=== PATIENT | male | born 1995 | race African-American/Black ===

== ENCOUNTER 2021-08-30 12:11 | Emergency (ER) | payer OTHER, SELFPAY ==
[2021-08-30 12:29] VITALS: BP 149/91; PULSE 79; RESP 18; TEMP 36.8; O2SAT 99; BMI 28.0
--- NOTE | 2021-08-30 12:39 | ED_ITS ---
HPI - Extremity Injury (Upper) <Brian Nicole PA-C - Last Filed: 08/30/21 19:55> General Chief Complaint: Extremity Injury, Upper Stated Complaint: Laceration to Rt Hand Time Seen by Provider: 08/30/21 12:15 Mode of arrival: Ambulatory History of Present Illness HPI narrative: Patient is a 26-year-old male presenting to the emergency department today for an evaluation of a right hand laceration. Patient states that he was working wh en he sustained a laceration, noting that he cut his hand on a sharp piece of metal. He states that the injury occurred approximately 1 hour ago and states that his pain and bleeding under control at this time. Of note, patient denies injury or pain elsewhere. No fever, chills, chest pain, cough, shortness of breath, nausea, vomiting, diarrhea, abdominal pain, dysuria, hematuria, numbness and tingling the upper extremities, or any other concerning symptoms reported. No further concerns were voiced at this time. Patient states that it has been longer than 5 years since his most recent tetanus shot. Related Data Allergies Allergy/AdvReac Type Severity Reaction Status Date / Time No Known Drug Allergies Allergy Verified 08/30/21 12:39 Review of Systems <Brian Nicole PA-C - Last Filed: 08/30/21 19:55> Constitutional Constitutional: Denies chills, Denies fatigue, Denies fever(s), Denies frequent falls, Denies lethargy and Denies weakness Eyes Eyes: Denies loss of vision ENT Ears, Nose, Mouth, and Throat: Denies dizziness and Denies neck pain Cardiovascular Cardiovascular: Denies chest pain, Denies irregular heart rhythm, Denies lightheadedness, Denies palpitations, Denies dyspnea, Denies dyspnea on exertion and Denies orthopnea Respiratory Respiratory: Denies cough, Denies dyspnea, Denies dyspnea on exertion and Denies wheezing Gastrointestinal Gastrointestinal: Denies abdominal pain, Denies change in bowel habits, Denies diarrhea, Denies nausea and Denies vomiting Genitourinary Genitourinary: Denies hematuria, Denies flank pain, Denies urinary incontinence and Denies urinary urgency Musculoskeletal Musculoskeletal: Denies back pain, Denies muscle weakness, Denies neck pain, Denies numbness and Denies tingling Integumentary/Breasts Skin/Breast: Denies pruritus, Denies erythema, Denies rash and Reports wounds (Laceration right hand) Neurologic Neurologic: Denies behavioral changes, Denies confusion, Denies dizziness, Denies frequent falls, Denies loss of vision, Denies numbness, Denies tingling and Denies weakness Psychiatric Psychiatric: Denies behavioral changes and Denies confusion Endocrine Endocrine: Denies fatigue and Denies palpitations Allergic/Immunologic Allergic/Immunologic: Denies wheezing Patient History <Brian Nicole PA-C - Last Filed: 08/30/21 19:55> Social History Smoking Status: Never smoker Smoking Status: Never smoker Substance Use Type: does not use Exam <Brian Nicole PA-C - Last Filed: 08/30/21 19:55> Narrative Exam Narrative: GENERAL: 26 year old patient appears stated age. Well-developed patient, in no acute distress. HEAD: Atraumatic. Normocephalic. EYES: Pupils equal round and reactive. Extraocular motions intact. No scleral icterus. No injection or drainage. ENT: Nose without bleeding, purulent drainage. Throat without erythema, tonsillar hypertrophy or exudate. Airway patent. NECK: Trachea midline. Non tender CARDIOVASCULAR: Regular rate and rhythm without murmurs, gallops, or rubs. RESPIRATORY: Clear to auscultation. Breath sounds equal bilaterally. No wheezes, rales, or rhonchi. GASTROINTESTINAL: Abdomen soft, non-tender, nondistended. EXTREMITIES: No edema or joint tenderness. BACK: Nontender without deformity or crepitance. No flank tenderness. NEURO: AOx3. SKIN: No rash or erythema of visible areas. Approximately 2 cm linear laceration noted to the palmar aspect of the right hand without significant surrounding erythema or swelling. No retained foreign body noted in the laceration. No discharge noted throughout the laceration. Initial Vital Signs Initial Vital Signs: Vital Signs Temperature 98.2 F 08/30/21 12:29 Pulse Rate 79 08/30/21 12:29 Respiratory Rate 18 08/30/21 12:29 Blood Pressure 149/91 H 08/30/21 12:29 Pulse Oximetry 99 08/30/21 12:29 <Lexa Thomas DO - Last Filed: 08/31/21 22:30> Initial Vital Signs Initial Vital Signs: Vital Signs Temperature 98.2 F 08/30/21 12:29 Pulse Rate 79 08/30/21 12:29 Respiratory Rate 18 08/30/21 12:29 Blood Pressure 149/91 H 08/30/21 12:29 Pulse Oximetry 99 08/30/21 12:29 Procedures <Brian Nicole PA-C - Last Filed: 08/30/21 19:55> Laceration Repair Laceration 1: Time of procedure: 13:21 Site: hand Side (If applicable): right Size (cm): 2 Description: linear Depth: simple, single layer Local Anesthetic: lidocaine 1% Amount of anesthesia used (mL): 6 Pre-repair: wound explored, irrigated extensively and deep structures intact Skin layer closed with: nylon Size (cm): 5-0 Number of sutures: 8 Technique: simple, interrupted Course <Brian Nicole PA-C - Last Filed: 08/30/21 19:55> Course Course Narrative: Superficial skin laceration closed with 8 5-0 nylon sutures. Wound edges approximated well. Deep structures intact. No foreign body identified. Orders Ordered: Discontinued Medications Diphtheria/Tetanus/Acell Pertussis (Tet,Diph,Pertuss(Acell),Vac/Pf 0.5 Ml Syringe) 0.5 ml IM .ONCE ONE Stop: 08/30/21 12:44 Last Admin: 08/30/21 12:55 Dose: 0.5 ml Documented by: GINA Ibuprofen (Ibuprofen 400 Mg Tablet) 400 mg PO NOW ONE Stop: 08/30/21 12:44 Last Admin: 08/30/21 12:56 Dose: 400 mg Documented by: ATAYLOR Lidocaine/Sodium Bicarbonate (Lido 1%/Sod Bicarb 8.4% (10ml) 10 Ml Syringe) 10 ml INJ NOW ONE Stop: 08/30/21 12:40 Last Admin: 08/30/21 12:56 Dose: 10 ml Documented by: GINA Vital Signs Vital signs: Vital Signs - 8 hr 08/30/21 12:29 Temperature 98.2 F Pulse Rate 79 Respiratory Rate 18 Blood Pressure 149/91 H Pulse Oximetry 99 <Lexa Thomas DO - Last Filed: 08/31/21 22:30> Orders Ordered: Discontinued Medications Diphtheria/Tetanus/Acell Pertussis (Tet,Diph,Pertuss(Acell),Vac/Pf 0.5 Ml Syringe) 0.5 ml IM .ONCE ONE Stop: 08/30/21 12:44 Last Admin: 08/30/21 12:55 Dose: 0.5 ml Documented by: GINA Ibuprofen (Ibuprofen 400 Mg Tablet) 400 mg PO NOW ONE Stop: 08/30/21 12:44 Last Admin: 08/30/21 12:56 Dose: 400 mg Documented by: GINA Lidocaine/Sodium Bicarbonate (Lido 1%/Sod Bicarb 8.4% (10ml) 10 Ml Syringe) 10 ml INJ NOW ONE Stop: 08/30/21 12:40 Last Admin: 08/30/21 12:56 Dose: 10 ml Documented by: GINA Vital Signs Vital signs: Vital Signs - 8 hr 08/30/21 12:29 Temperature 98.2 F Pulse Rate 79 Respiratory Rate 18 Blood Pressure 149/91 H Pulse Oximetry 99 MDM - Extremity Injury (Upper) <Brian Nicole PA-C - Last Filed: 08/30/21 19:55> MDM Narrative Medical decision making narrative: To consider superficial skin laceration versus deep laceration versus cellulitis versus tendon rupture. Overall physical examination and history are reassuring. Wound edges were approximated well and bleeding was controlled. Discussed with patient the need to keep sutures in place for 10-14 days. I also instructed the patient to either return to the emergency department, go to Urgent Care, or visit his primary care provider to have sutures removed. Patient expresses understanding and agrees to plan. Patient was instructed to not cover the laceration with topical ointments or to soak a laceration until it is completely healed. Strict interim precautions were discussed with the patient prior to discharge at this time patient is stable and ready for discharge. Discharge Plan Departure Patient Disposition: Home Clinical Impression: Laceration of hand, right Instructions: DI for Laceration Repair Activity Restrictions/Additional Instructions: *You have been diagnosed with right hand laceration *What to do: *Please continue to take your regular medications as directed. [ ] New medication prescriptions sent to your pharmacy: [ ] [ ] New medication written as a paper prescription [X] No new medications given *Please follow up with your primary care provider in 2-3 days, call for an appointment. Let them know you were seen in the Emergency Department and that we ask that you be seen in follow up. We will electronically transmit a record of today's note if your PCP is in our system. *Please keep sutures in place for 10-14 days. They can be removed either in the emergency department, urgent care, or your primary care provider's office. Do not soak the laceration or place topical ointments over the laceration until completely healed. *If you do not have a primary care provider please contact the [facility] Resource line at [phone]. They will ask some questions about your medical history and help get you set up with a doctor in the community. *Return to Emergency Department if you should have any new, worsening or concerning symptoms, such as fever greater than 101 F, shaking chills, worsening pain, swelling around the laceration, discharge from laceration, warmth, from the laceration, persistent vomiting or other bothersome symptoms. <Lexa Thomas DO - Last Filed: 08/31/21 22:30> Cosign ED Attending [place] Attestation: I was immediately available in the department for consultation. This documentation has been reviewed and I agree with assessment and plan. Supervised by Lexa Thomas DO
[2021-08-30] MEDS: TET,DIPH,PERTUSS(ACELL),VAC/PF 0.5 ML SYRINGE IM (12:55)
[2021-08-30] MEDS: IBUPROFEN 400 MG TABLET PO (12:56)
[2021-08-30] MEDS: LIDO 1%/SOD BICARB 8.4% (10ML) 10 ML SYRINGE INJ (12:56)
== END 2021-08-30 13:38 | disposition home or self-care (01) ==
PROVIDERS: Emergency Provider Physician Assistant
DX: S61.411A Laceration without foreign body of right hand, initial encounter (principal); W26.8XXA Contact with other sharp object(s), not elsewhere classified, initial encounter; Y99.0 Civilian activity done for income or pay; Z23 Encounter for immunization
CPT/HCPCS: 12001; 90471; 99283; 99284; 90715

== ENCOUNTER → 2022-04-12 08:36 | Outpatient (CLI) | payer OTHER, SELFPAY ==
--- NOTE | 2022-04-12 | DI.MRI.S_ITS ---
PROCEDURE: MR ANKLE RT WO CON INDICATIONS: Laceration of right Achilles tendon TECHNIQUE: Noncontrast sagittal T1 spin echo and T2 fast spin echo with fat saturation, axial proton density fast spin echo and T2 fast spin echo with fat saturation, coronal T1 spin echo and T2 fast spin echo with fat saturation through the ankle/hindfoot. COMPARISON: None. FINDINGS: Image quality: Excellent. Bones and joints: There is bony contusion involving anterior aspect of tibiotalar joint with mild edema, no discrete fracture line is seen. No other area of abnormal marrow signal. No hindfoot coalitions. No osteochondral injuries of the talar dome. No pathologic joint effusions. Medial structures: The posterior tibialis, flexor digitorum longus, and flexor hallucis longus tendons are intact. Small amount of fluid distending flexor tendon sheath is seen. Very low-grade tenosynovitis cannot be excluded. The posterior tibial neurovascular bundle appears normal within the tarsal tunnel, without extrinsic mass effect. The deep layer (anterior and posterior tibiotalar ligaments) and superficial layer (tibionavicular, tibiospring, and tibiocalcaneal ligaments) of the deltoid ligament appear normal. The spring ligament components (superomedial calcaneonavicular, medioplantar oblique calcaneonavicular, and inferoplantar longitudinal ligaments) are intact. Lateral structures: The anterior talofibular, calcaneofibular, and posterior talofibular ligaments appear intact. More superiorly, the anterior and posterior tibiofibular ligaments appear intact, as is the intermalleolar ligament. The tibiofibular syndesmosis is normal in width at 2 mm or less. The peroneus longus and brevis tendons demonstrate normal location and morphology. Adjacent bony peroneal tubercle and retrotrochlear prominence are normal in size. The sinus tarsi demonstrates normal fatty signal, without edema, fibrosis, or cyst formation. Visualized sinus tarsi components (cervical ligament, interosseous talocalcaneal ligament, roots of the inferior extensor retinaculum) appear normal. The calcaneonavicular and calcaneocuboid components of the bifurcate ligament appear intact. The dorsal calcaneocuboid ligament appears intact. Anterior structures: The tibialis anterior, extensor hallucis longus, and extensor digitorum longus tendons appear intact. The dorsal talonavicular ligament appears intact. Posterior and plantar structures: There is full-thickness rupture of Achilles tendon approximately 6 cm from its insertion on posterior calcaneus with up to 4.1 cm proximal retraction of torn tendon fibers with large amount of fluid and soft tissue edema at the site of rupture. Medial and lateral bands of the plantar fascia are of normal thickness. No abductor digiti quinti muscle atrophy to suggest Gunn neuropathy. IMPRESSION: 1. Full-thickness rupture of Achilles tendon approximately 6 cm from its insertion on posterior calcaneus with up to 4.1 cm proximal retraction of torn tendon fibers and fluid-filled gap at the site of rupture as above. 2. Bony contusion involving anterior aspect of tibiotalar joint. No fracture or dislocation. No osteochondral injury of talar dome. 3. Possible very low-grade tenosynovitis involving flexor tendons. Rest of the ankle tendons and ligaments are intact. Dictated by: Chucho Diaz M.D. on 04/12/2022 at 11:44 Approved by: Chucho Diaz M.D. on 04/12/2022 at 11:53
== END ==
PROVIDERS: PCP Physician Assistant; Referring Provider Counselor Mental Health; Visit Provider Counselor Mental Health
DX: S86.021A Laceration of right Achilles tendon, initial encounter (principal); S86.011A Strain of right Achilles tendon, initial encounter
CPT/HCPCS: 73721